=== PATIENT | female | born 1985 | race Caucasian/White ===

== ENCOUNTER 2024-03-21 08:02 | Outpatient (CLI) | payer OTHER, SELFPAY ==
--- NOTE | 2024-03-21 08:15 | CRLHL7_ITS ---
For Patients: As a result of the Century Cures Act, medical imaging exams and procedure reports are released immediately into your electronic medical record. You may view this report before your referring provider. If you have questions, please contact your health care provider. INDICATION: First trimester scan, establish dates. COMPARISON: None. TECHNIQUE: Real-time banegas-scale imaging of the pelvis was performed. FINDINGS: Sonographic imaging demonstrates a single living intrauterine gestation. The embryo demonstrates a regular cardiac rate measuring 173 beats per minute. The embryo`s crown-rump length measurement of 2.2 cm corresponds to a gestational age of 8 weeks 6 days with a sonographic due date of 10/25/2022. There is a normal-appearing yolk sac. Umbilical cord cyst is present measuring 5 x 4 x 5 millimeters. The gestational sac has a normal appearance. There is no evidence of a perigestational hemorrhage. The amount of fluid within the sac appears appropriate for gestational age. The cervix is closed. The myometrium appears normal. The ovaries are of normal size. Corpus luteal cyst right ovary measures 2.6 x 1.7 x 2.2 cm. There are no suspicious fluid collections noted in the cul-de-sac. IMPRESSION: Single living intrauterine with sonographic gestational age 8 weeks 6 days and a sonographic due date of 10/25/2024. 5 millimeter umbilical cord cyst. Follow-up in 12 weeks recommended. Dictated by Claeb Chance MD @ 03/21/2024 1:07:52 PM (Electronically Signed)
== END 2024-03-21 08:03 | disposition home or self-care (01) ==
LOC: US 08:02
PROVIDERS: Visit Provider Physician Assistant
DX: Z34.91 Encounter for supervision of normal pregnancy, unspecified, first trimester (principal); O43.891 Other placental disorders, first trimester; Z3A.08 8 weeks gestation of pregnancy
CPT/HCPCS: 76817; 86703; 86706; 86803; 86850; 86900; 86901; 87086; 87340

== ENCOUNTER 2024-03-21 09:58 | Outpatient (CLI) | payer OTHER, SELFPAY | END 2024-03-21 09:59 | disposition home or self-care (01) | PROVIDERS: PCP Physician Assistant; Visit Provider Physician Assistant | DX: Z34.81 Encounter for supervision of other normal pregnancy, first trimester (principal) | CPT/HCPCS: 86592; 86703; 86704; 86706; 86762; 86787; 86803; 86850; 86900; 86901; 87086; 87340 ==

== ENCOUNTER 2024-04-18 08:34 | Outpatient (CLI) | payer OTHER, SELFPAY ==
--- NOTE | 2024-04-18 08:45 | CRLHL7_ITS ---
For Patients: As a result of the Century Cures Act, medical imaging exams and procedure reports are released immediately into your electronic medical record. You may view this report before your referring provider. If you have questions, please contact your health care provider. INDICATION: Umbilical cord cyst COMPARISON: 03/21/2024 TECHNIQUE: Real-time banegas-scale imaging of the pelvis was performed. FINDINGS: Sonographic imaging demonstrates a single living intrauterine gestation. The embryo demonstrates a regular cardiac rate measuring 150 beats per minute. The embryo`s crown-rump length measurement of 6.8 cm corresponds to a gestational age of 13 weeks 1 day with a sonographic due date of 10/23/2024. There is a normal-appearing yolk sac. There are no gross abnormalities noted within the embryo at this early state of development. The gestational sac has a normal appearance. There is no evidence of a perigestational hemorrhage. The amount of fluid within the sac appears appropriate for gestational age. The cervix is closed. The myometrium appears normal. Corpus luteal cyst right ovary. Left ovary not visualized. There are no suspicious fluid collections noted in the cul-de-sac. IMPRESSION: Single living intrauterine with sonographic gestational age 13 weeks 1 day and sonographic due date of 10/23/2024. Interval resolution of the previously noted umbilical cord cyst. Dictated by Caleb Chance MD @ 04/18/2024 10:01:07 AM (Electronically Signed)
== END 2024-04-18 08:35 | disposition home or self-care (01) ==
LOC: US 08:34
PROVIDERS: Visit Provider Physician Assistant
DX: O36.8910 Maternal care for other specified fetal problems, first trimester, not applicable or unspecified (principal); Z3A.13 13 weeks gestation of pregnancy
CPT/HCPCS: 76801

== ENCOUNTER 2024-08-05 08:30 | Outpatient (CLI) | payer OTHER, SELFPAY | END 2024-08-05 08:31 | disposition home or self-care (01) | LOC: NFLDREF 08-07 05:21 | PROVIDERS: Visit Provider Midwife | DX: Z34.93 Encounter for supervision of normal pregnancy, unspecified, third trimester (principal); Z3A.28 28 weeks gestation of pregnancy | CPT/HCPCS: 86592 ==

== ENCOUNTER 2024-08-12 12:08 | Outpatient (CLI) | payer OTHER, SELFPAY ==
[2024-08-12 12:52] VITALS: BP 118/67; PULSE 76; TEMP 36.6
[2024-08-12 13:03] LABS: Appearance Urine Clear (Clear); Bilirubin Urine Negative (Negative); Blood Urine Negative (Negative); Color Urine Yellow (Yellow); Glucose Urine Negative (Negative); Ketones Urine Negative (Negative); Leukocyte Esterase Urine Negative (Negative); Nitrite Urine Negative (Negative); Protein Urine Negative (Negative); Specific Gravity Urine 1.025 (1.000-1.030); Urobilinogen Urine 0.2 (0.2-1.0); pH Urine 6.5 (5.0-8.5)
[2024-08-12 13:34] LABS: Trichomonas No Trichomonas Seen (None Seen); Yeast No Yeast Seen (None Seen)
[2024-08-12 13:35] LABS: Clue Cells No Clue Cells Seen (None Seen)
--- NOTE | 2024-08-12 14:12 | PC.OBNST ---
NST Note NST Note Start: 08/12/24 11:35 Freq: ONCE Status: Active Protocol: Document 08/12/24 14:00 PORT (Rec: 08/12/24 14:11 PORT Desktop) NST Note 4 Para (# of births) 2 EDC 10/28/24 Gestational Age In Weeks & Days 29 Weeks & 0 Days High Risk Factors Advanced Maternal Age Patient Presented with Complaint(s) of Contractions/cramping Other Complaints Pt arrived on unit for evaluation of menstrual-like cramping occurring intermittently for the previous 24 hours with activity. Cramping subsides when patient rests. Reactive Yes Appropriate for Gestational Age Yes RN João Sadler RNC Date 08/12/24 Reactive Yes Appropriate for Gestational Age Yes HENOK Bowden CN Date 08/12/24 OB NST charge Yes Complete NST Note via Write Note Yes The provider's electronic signature indicates the NST is reactive/appropriate for gestational age. *Note to provider: If an addendum is required, open the patient's chart and click on the note under the Nurse/Allied Health tab.
== END 2024-08-12 14:00 | disposition home or self-care (01) ==
LOC: OB OUT 12:08 → OB 12:09
PROVIDERS: Visit Provider Advanced Practice Midwife
DX: O47.03 False labor before 37 completed weeks of gestation, third trimester (principal); Z3A.29 29 weeks gestation of pregnancy
CPT/HCPCS: 59025; 81003; 87210; G0463

== ENCOUNTER 2024-09-18 13:52 | Outpatient (CLI) | payer OTHER, SELFPAY | END 2024-09-18 13:53 | disposition home or self-care (01) | LOC: NFLDREF 09-25 00:43 | PROVIDERS: Visit Provider Obstetrics & Gynecology | DX: Z34.93 Encounter for supervision of normal pregnancy, unspecified, third trimester (principal); Z3A.29 29 weeks gestation of pregnancy | CPT/HCPCS: 82728 ==

== ENCOUNTER 2024-10-02 13:13 | Outpatient (CLI) | payer OTHER, SELFPAY | END 2024-10-02 13:14 | disposition home or self-care (01) | LOC: NFLDREF 10-07 14:48 | PROVIDERS: Visit Provider Advanced Practice Midwife | DX: O09.523 Supervision of elderly multigravida, third trimester (principal); O99.013 Anemia complicating pregnancy, third trimester; Z3A.36 36 weeks gestation of pregnancy | CPT/HCPCS: 87081; 87653 ==

== ENCOUNTER 2024-10-22 15:17 | Inpatient (IN) | payer OTHER, SELFPAY ==
[2024-10-22] VITALS (20 sets, daily range): BP systolic 104–135; BP diastolic 58–78; PULSE 70–96; RESP 16–18; TEMP 36.6–36.9; O2SAT 97; BMI 29.0
[2024-10-22] MEDS: LACTATED RINGERS 1000 ML 1,000 ML 125 ML IV (15:18)
[2024-10-22] MEDS: AMPICILLIN 2 GM in 0.9 % SODIUM CHLORIDE Mini-bag 100 ML IVPB (15:19)
--- NOTE | 2024-10-22 15:49 | W.PM.LDBA ---
Subjective History of Present Illness Date Seen: 10/22/24 Narrative: Brooke is a 38 year old being admitted to Labor and Delivery for spontaneous onset of labor. She was seen in clinic this morning and had just started having irregular contractions very 5 minutes. She reported they had been irregular and mild when she woke up but was actively pausing through them at her visit. She went home and was able to cope well. Her , Cesar, is her labor support. She called around 2 stating they had become more regular and intense and they were heading in. She declines any leaking of fluid or bleeding. She endorses good movement. Her full history and physical was dictated by Yumiko Qiu CNM on 10/08/2024. Please see this for details. Specific Issues/Plans Cesar; It is a boy! H&P completed by Yumiko Qiu on 10/08/2024 # AMA Maternity T21 at 12 weeks:negative Level 2 ultrasound: all WNL # depression and anxiety, doing well on sertraline 75 mg # history of macrosomia. 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 #Undesired fertility Pt desires bilateral salpingectomy only in event of C/S, consent obtained. If she has , declines PP sterilization and instead will utilize partner vasectomy # GBS Positive Recommend antibiotics in labor # umbilical cord cyst, RESOLVED Follow-up ultrasound at 12 weeks:resolved Would like a tubal ligation if she were to need a for some reason. Could consult MD in so if emergent, it could be done. Brooke likes this plan. TDAP: 09/18/24 RSV: declines Mental Health: 09/03/24 HGB:09/18/24 10.5 GBS: 10/02/2024: positive H&P: Pap due PP OB - Problem Based A/P Additional Plan (1) Pain during labor: Status: Acute (2) Spontaneous onset of labor: Status: Acute (3) GBS (group B Streptococcus carrier), +RV culture, currently : Status: Acute (4) AMA (advanced maternal age) multigravida 35+: Status: Acute (5) 39 weeks gestation of : Status: Acute (6) Depression with anxiety: Status: Acute Plan ASSESSMENT:? 38 yo at 39.1 weeks gestation? complicated by:? # AMA # Depression and anxiety, doing well on sertraline 75 mg # history of macrosomia. 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 # Undesired fertility # GBS Positive # umbilical cord cyst, RESOLVED Labor type: Spontaneous, Active labor? Initially Category 2 FHR pattern, Improved to Cat I with continued monitoring Labor complicated by: GBS GBS positive? ? PLAN:? 1. Routine intrapartum cares as ordered. Continue with expectant management? 2. Monitoring per policy, intermittent. Initially was unable to determine decelerations. These resolved and FHR tracing improved to category I. Switched to intermittent with reassuring FHR tracing.? 3. Planning unmedicated . Desires water . Consent signed. Hep C negative. Candidate for analgesia of choice, if desired.?? 4. Patient encouraged to reposition and ambulate to promote physiologic labor and .? 5. GBS prophylaxis initiated for GBS positive status. Will treat with antibiotics per protocol. 6. Anticipate ? Delivery/Labor/Induction Plan Plan: expectant management OB Exam Physical Exam Vital signs: Pulse BP Pulse Ox 77 129/78 97 10/22/24 14:51 10/22/24 14:51 10/22/24 14:52 Narrative: Vitals Reviewed Constitutional:? Alert and oriented x3 HEENT:? Normocephalic, atraumatic Neck:? Supple Lungs:? Clear to auscultation bilaterally Heart:? Regular rate and rhythm, no murmur, rub or gallop Abdomen:? Soft, nontender, and gravid. Vertex by Mendez's, confirmed with cervical exam. Extremities:? No edema or erythema Cervix: Deferred, by patient NST: 150 bpm/moderate variability/15x15 accelerations/occasional decelerations/contractions every 4 minutes
[2024-10-22 16:16] LABS: Basophils Absolute Auto 0.03 K/uL (0.00-0.30); Basophils Percent Auto 0.4 % (0.0-3.0); Eosinophils Absolute Auto 0.08 K/uL (0.00-0.50); Eosinophils Percent Auto 0.9 % (0.0-7.0); Hematocrit 42.3 % (33.0-51.0); Hemoglobin* 13.3 gm/dL (12.0-16.0); Immature Granulocytes Abs Auto 0.03 K/uL (0.00-0.30); Immature Granulocytes Pct Auto 0.4 %; Lymphocytes Percent Auto 16.3 % (20-44); Mean Corpuscular HGB Conc 31 gm/dL (32-36); Mean Corpuscular Hemoglobin 28 pg (26-34); Mean Corpuscular Volume 90 fL (80-100); Monocytes Percent Auto 4.9 % (0.0-11.0); Neutrophils Percent Auto 77.1 % (42.0-72.0); Platelet Count* 211 K/uL (140-440); RDW Coefficient of Variation % 13.5 % (11.5-15.5); Red Blood Count 4.69 m/uL (4.00-5.20); White Blood Count* 8.57 K/uL (4.50-11.00)
[2024-10-22 16:18] LABS: Slide Review Reflex No
[2024-10-22] MEDS: IBUPROFEN 600 MG TABLET PO ×2 (17:56→23:51)
[2024-10-22] MEDS: LIDOCAINE 1 % PF 30 ML INJECTION (18:15)
--- NOTE | 2024-10-22 18:40 | W.PM.OBVAGDE ---
OB Procedure Vag Delivery Mother Details Mother Details: The patient is a 38 year-old, 4, Para 2, admitted on 10/22/24 at 39.1 weeks gestation. : 4 Para: 2 Weeks Gestation: 39.1 Admission Date: 10/22/24 Additional Details Amniotic Membrane Status: SROM Amniotic Membrane Rupture Date: 10/22/24 Amniotic Membrane Rupture Time: 17:20 Amniotic Membrane Fluid Description: Clear Analgesia/Anesthesia Type: Local Waterbirth: Yes Pitcoin: No (Desired expectant ) Intrapartal Events: None Labor Onset: 14:00 Complete: 17:24 Pushin:24 Heart: heart tones during second stage were not auscultated due to pushing through 1 contraction for delivery. Delivery Details Delivery Date: 10/22/24 Delivery Time: 17:26 Route of delivery: Gender: Male Infant Viability: Alive; Heart Rate Present Position at Delivery: OA Delivery Details: Patient was admitted for spontaneous onset of labor and progressed normally. She labored on the ball before entering the tub at 1630. SROM occurred just before delivery with clear fluid at 1720. Patient was assumed complete with pushing at 1724. of a viable male at 1726, kneelin in the tub. Vertex delivered OA. No shoulder. Body delivered easily and without incident. Nuchal identified and attempted to reduce in the water but due to difficulty in visualization, baby was lifted out of the water. Again attempted to reduce and initially unable due to maternal position, water, and baby's arm positions. Baby was then rotated multiple times to untangle cord x4 around the neck. passed to mothers abdomen with a vigorous cry. Cord was clamped and cut at > 5 minutes. APGARS were 7 at one minute and 8 at five minutes respectively. Mouth was bulb suctioned. Intact placenta with a 3 vessel cord delivered spontaneously at 1756. Fundus firm. 1st degree identified and repaired in typical fashion. QBL 300 cc + EBL 100 in tub, total 400 cc. Mother and baby stable; mother plans to breastfeed. weight 8lb 0oz. GBS was not adequately treated. 1 Minute Interval Total Score: 7 5 Minute Interval Total Score: 8 Additional Details Shoulder Dystocia: No Placenta Delivery Time: 17:56 Placental Delivery Description: Spontaneous Delivery repair: Vicryl Procedure Done: Global Blood Loss: 400 Laceration: Perineal - 1st Degree Blood Loss Measurement Type: QBL (EBL total in tub) Bakri Used: No Sponge/Need Count Correct: Yes Cord Vessel Description: 3 Vessels, Nuchal Cord (x4) and Loose Event Summary Status: Mother and infant were stable after delivery. Disposition: floor
[2024-10-22] MEDS: ACETAMINOPHEN 500 MG TABLET 1000 MG PO (23:51)
[2024-10-22] MEDS: CALCIUM CARBONATE 500 MG CHEW PO (23:51)
[2024-10-23 04:19] VITALS: BP 124/81; PULSE 66; RESP 20; O2SAT 96
[2024-10-23] MEDS: IBUPROFEN 600 MG TABLET PO ×3 (06:47→20:04)
[2024-10-23] MEDS: ACETAMINOPHEN 500 MG TABLET 1000 MG PO ×3 (06:48→20:04)
[2024-10-23] MEDS: DOCUSATE SODIUM 100 MG CAPSULE PO (08:32)
[2024-10-23 08:40] VITALS: BP 127/74; PULSE 72; RESP 16; TEMP 36.8; O2SAT 96
--- NOTE | 2024-10-23 09:15 | PM.OBPNVD1 ---
OB - PN:Subj Subjective Date Seen: 10/23/24 Narrative: Brooke is a 38 year old who was admitted for spontaneous labor and proceeded to have a vaginal water? 1st degree laceration that was repaired.The patient feels well.? The pain is well controlled with current medications.? She has no new complaints.? Urinary output is adequate and she is voiding without difficulty.? Has a good appetite, is tolerating a general diet, is passing flatus, and has had not a bowel movement.? Has scant amount of rubra lochia.? She is ambulating well. She is and reports it is going well.? OB - PN: Obj Exam Physical Exam: Vital signs: Temp Pulse Resp BP Pulse Ox O2 Del Method 98.2 F 72 16 127/74 96 Room Air 10/23/24 08:40 10/23/24 08:40 10/23/24 08:40 10/23/24 08:40 10/23/24 08:40 10/23/24 08:40 Narrative: GENERAL APPEARANCE:? normal affect, alert, no distress MOOD:? appropriate ABDOMEN:? soft, non-tender the uterine fundus is 1 FB below Umbilicus, Midline and is appropriate for the stage of recovery. PERINEUM:? deferred EXTREMITIES:? normal and minimal edema OB - PN: Obj Data Labs Labs: Laboratory Results - last 24 hr 10/22/24 10/22/24 15:25 15:46 WBC 8.57 RBC 4.69 Hgb 13.3 Hct 42.3 MCV 90 MCH 28 MCHC 31 L RDW Coeff of [place] 13.5 Plt Count 211 Neut % (Auto) 77.1 H Lymph % (Auto) 16.3 L [place] % (Auto) 4.9 Eos % (Auto) 0.9 Baso % (Auto) 0.4 Neut # (Auto) 6.60 Lymph # (Auto) 1.40 [place] # (Auto) 0.40 Eos # (Auto) 0.08 Baso # (Auto) 0.03 Abs Immat Gran (auto) 0.03 Imm/Tot Granulo (auto) 0.4 Blood Type A Positive Antibody Screen NEGATIVE OB - PN: A/P Delivery Assessment and Plan (1) care and examination of lactating mother: Status: Acute (2) (normal spontaneous vaginal delivery): Status: Acute (3) AMA (advanced maternal age) multigravida 35+: Status: Acute Plan Comments: PP day #1 Routine care May see as desired Anticipate discharge this evening or tomorrow as indicated and per patient. GBS inadequately treated Can call me to return if patient decides to discharge this eriberto
[2024-10-23 12:35] VITALS: BP 132/89; PULSE 77; RESP 16; TEMP 36.7; O2SAT 96
[2024-10-23] MEDS: SERTRALINE 100 MG TABLET PO (14:00)
[2024-10-23 18:00] VITALS: BP 124/80; PULSE 77; RESP 16; TEMP 36.9; O2SAT 95
[2024-10-23 23:14] VITALS: BP 134/79; PULSE 70; RESP 16; O2SAT 95
--- NOTE | 2024-10-24 07:30 | PM.OBDSVD1 ---
DS: Providers Provider Date Seen: 10/24/24 Date of admission: 10/22/24 15:17 Primary care physician: Not a Local Provider Admitting Clinician: Abi Bowden CNM Attending Physician on discharge: Abi Bowden CNM Date of Discharge: 10/24/24 DS: Diagnosis Discharge Diagnosis (1) care and examination of lactating mother: Status: Acute (2) (normal spontaneous vaginal delivery): Status: Acute (3) Depression with anxiety: Status: Acute (4) Migraine: Status: Inactive Exam Narrative: Exam Narrative: GENERAL APPEARANCE:? normal affect, alert, no distress? MOOD:? appropriate? CHEST:? clear to auscultation and percussion? HEART:? regular rate and rhythm? ABDOMEN:? soft, non-tender the uterine fundus is U/2 and is appropriate for the stage of recovery.? PERINEUM:? mild edema of the perineum, there is a 1st degree laceration that is healing well.? EXTREMITIES:? normal and no edema? Const: Vital Signs, click to edit/add: Vital Signs - 24 hr 10/23/24 08:40 10/23/24 12:35 10/23/24 18:00 Temperature 98.2 F 98.1 F 98.4 F Pulse Rate [Pulse Oximeter] 72 77 77 Respiratory Rate 16 16 16 Blood Pressure [Ri ght Arm] 127/74 132/89 124/80 Pulse Oximetry 96 96 95 Oxygen Delivery Me thod Room Air Room Air Room Air 10/23/24 23:14 Temperature Pulse Rate [Pulse Oximeter] 70 Respiratory Rate 16 Blood Pressure [Ri ght Arm] 134/79 Pulse Oximetry 95 Oxygen Delivery Me thod Room Air Documenting provider has reviewed patient's vital signs: yes OB - DS: Summary Hospital Course Hospital Course: The patient is a 38 year old G 4 P 3 at 39.1 weeks gestation that was admitted to the Center on 10/22/24 for spontaneous labor. She had an uncomplicated vaginal delivery. She delivered a viable male . She is breast feeding and wants to see before discharge to work on latching. Feels that baby is using me as a pacifier. the patient has done well. Her pain is well controlled with current medications.? She has no new complaints.? Urinary output is adequate and she is voiding without difficulty.? Has a good appetite, is tolerating a general diet, is passing flatus, and has not had a bowel movement.? Has scant amount of rubra lochia.? She is ambulating well. Her blood pressures have been elevated from her normal in the last 12 hours. She does have a blood pressure cuff at home so encountered monitoring PRN and reviewed symptoms of preeclampsia. Her partner is planning a vasectomy and states that they will not be returning to intercourse before the testing is complete. Encouraged condoms if this changes. Peripartum Data delivery method: Vaginal Laceration description: Perineal - 1st Degree Episiotomy description: None complications: none Infant Gender: Male Infant Discharge Plan: Home Status at Discharge Functional status at discharge: independent ambulation Overall status at discharge: patient is progressing back to baseline Time Spent with Patient Time attestation: Total time spent providing and/or coordinating discharge services: Discharge Plan Discharge Disposition: Home, Self-Care Date of Admission: 10/22/24 15:17 Attending Provider on Discharge: Cassandra Qiu Primary Care Provider: Provider,Not a Local Condition: Stable Anticipated Discharge Date/Time: 10/24/24 10:00 Discharge Medications: New docusate sodium 100 mg Capsule 100 mg PO DAILY Qty: 90 0RF Rx Instructions: Take 1-2 tablets daily as needed for constipation. ibuprofen 600 mg Tablet 600 mg PO Q6H PRNQty: 60 0RF Continued [id number] 3-fat com #1 27-1-300 mg capsule 1 cap PO DAILY acetaminophen [Tylenol Extra Strength] 500 mg tablet 1,000 mg PO Q6H PRN albuterol sulfate 90 mcg/actuation HFA aerosol inhaler 1 inh inhalation ONCE PRN sertraline 100 mg tablet 100 mg PO QDAY Qty: 90 3RF Discontinued ferrous sulfate [iron] 325 mg (65 mg iron) tablet 325 mg PO Q OTHER DAY Discharge Orders: Discharge Order (Routine); Ordered 10/24/24 Ordered By: Cassandra Qiu Patient Education: OB Vaginal/Breast Feeding Additional Instructions: Discharge instructions were reviewed with the patient including signs and symptoms of infection and home going medications.? Lifting Restrictions: 20 pounds for 6? weeks? ?? Do not drive while taking narcotic pain meds.? Off Work or School for 6 weeks.? ?? Symptoms to report to doctor:? -Bleeding that saturates more than one pad per hour? -Passing clots larger than the size of a golf ball? -Pain not relieved by prescribed medication? -Fever above 100.4 degrees Fahrenheit? -A foul vaginal odor? -Difficulty in emotions, mood and functions? -Thoughts of hurting yourself and/or ? -Painful, reddened area in your breast? -Any drainage, redness or tenderness in your IV/epidural site? -Severe headache that doesn't improve after taking medications? -Changes in vision, including temporary loss of vision, blurred vision, and/or light sensitivity? -Upper abdominal pain (usually under ribs on the right side)? -Decrease in urination or painful, frequent urinating? -Chest pain? -Shortness of breath? -Tenderness or pain with redness and/swelling in the calf(s) of your leg? ?? Follow Up in clinic in 2 and 6 weeks.? ?? consultation services are available to all mothers and babies for the first year after delivery.? To make an appointment, please call [phone].? Activity Level: Activity as Tolerated Discharge Diet: Regular Follow Up Appointments: [facility] [Provider Group] Provider,Not a Local [Primary Care Provider] - Forms: MyHealth Info Instructions
[2024-10-24] MEDS: SERTRALINE 100 MG TABLET PO (08:02)
[2024-10-24] MEDS: IBUPROFEN 600 MG TABLET PO (08:02)
[2024-10-24] MEDS: ACETAMINOPHEN 500 MG TABLET 1000 MG PO (08:03)
[2024-10-24] MEDS: DOCUSATE SODIUM 100 MG CAPSULE PO (08:03)
[2024-10-24 09:52] VITALS: BP 115/69; PULSE 77; RESP 16; TEMP 37.1; O2SAT 95
[2024-10-24 18:09] LABS: Rapid Plasma Reagin (RPR) Non Reactive (Non Reactive)
== END 2024-10-24 10:45 | disposition home or self-care (01) | DRG 807 ==
LOC: OB OUT 15:17 → OB 15:17
PROVIDERS: Admitting Provider Advanced Practice Midwife; Visit Provider Advanced Practice Midwife
DX: O99.824 Streptococcus B carrier state complicating childbirth (principal); Z37.0 Single live birth; O70.0 First degree perineal laceration during delivery; O99.344 Other mental disorders complicating childbirth; F41.8 Other specified anxiety disorders; G43.909 Migraine, unspecified, not intractable, without status migrainosus; O99.02 Anemia complicating childbirth; D64.9 Anemia, unspecified; Z3A.39 39 weeks gestation of pregnancy
CPT/HCPCS: 36415; 85025; 86592; 86850; 86900; 86901; A9270; J0290; J2003; J7120